=== PATIENT | female | born 1955 | race Caucasian/White ===

== ENCOUNTER 2019-09-19 12:31 | Outpatient (CLI) | payer OTHER, SELFPAY ==
--- NOTE | ~2019-09-19 | XR_ITS ---
EXAMINATION: XR sacrum coccyx min 2V INDICATION: Pain after fall TECHNIQUE: Three views of the sacrum and coccyx are obtained. COMPARISON: None available FINDINGS: No definite fracture is identified. There is mild lumbar spondylosis. The soft tissues appe ar normal. IMPRESSION: 1. No definite fracture identified. If there is high clinical concern for fracture, consider CT or MR I. Reviewed, dictated and finalized at location A. ENTICESHIP CONSULTANT IMPRESSION: 1. No definite fracture identified. If there is high clinical concern for fract ure, consider CT or MRI.
== END 2019-09-19 12:32 | disposition home or self-care (01) ==
LOC: ANHIMG 12:33
DX: S39.92XA Unspecified injury of lower back, initial encounter (principal)
CPT/HCPCS: 72220

== ENCOUNTER 2019-11-19 12:08 | Emergency (ER) | payer OTHER, SELFPAY ==
--- NOTE | ~2019-11-19 | XR_ITS ---
XR finger 1st RT min 2V 11/19/2019 12:45 Indication: Right first finger pain Procedure: 3 views right first finger Comparison: No prior studies for comparison. Findings: There is osteoarthritis of the first finger at the MCP and IP joints. Osteopenia. No acute fracture or traumatic malalignment. Carpal bones grossly unremarkable. 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 Reviewed, dictated and finalized at location A. 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
[2019-11-19 12:34] VITALS: BP 154/73; PULSE 86; RESP 16; TEMP 36.8; O2SAT 99
--- NOTE | 2019-11-19 12:47 | ED.UPPEXIN ---
HPI - Extremity Injury (Upper) General Chief Complaint: Extremity Injury, Upper Stated Complaint: right thumb injury History of Present Illness HPI narrative: This is a 64 year old female that comes in complaining of jamming her right thumb last week and she has had severe pain that is going all the way up her arm. Patient has continued to worry about her arm although she denies taking anything for her symptoms. Patient today she was wrestling with the dog and the chain and the wired poked all the way through her hand and she is thinking that she will need a td shot. Related Data Home Medications Medication Instructions Recorded Confirmed albuterol sulfate INHALATION 11/19/19 amlodipine 11/19/19 apremilast [Otezla] mg PO 11/19/19 atorvastatin 11/19/19 dextroamphetamine-amphetamine PO 11/19/19 divalproex PO 11/19/19 famotidine 11/19/19 famotidine 11/19/19 flu vac [id number] 36mos up(PF) IM 11/19/19 [Afluria Qd (3yr up)(PF)] fluconazole 11/19/19 glyburide mg 11/19/19 hydrochlorothiazide 11/19/19 insulin glargine [Basaglar KwikPen unit SUBCUT 11/19/19 U-100 Insulin] insulin lispro [Admelog SoloStar unit SUBCUT 11/19/19 U-100 Insulin] levothyroxine 11/19/19 losartan 11/19/19 metoprolol tartrate 11/19/19 nystatin TOPICAL 11/19/19 ondansetron 11/19/19 oxcarbazepine 11/19/19 triamcinolone acetonide TOPICAL 11/19/19 venlafaxine mg PO 11/19/19 Allergies Allergy/AdvReac Type Severity Reaction Status Date / Time acetaminophen [From Vicodin] Allergy Anaphylaxis Verified 11/19/19 12:50 hydrocodone [From Vicodin] Allergy Anaphylaxis Verified 11/19/19 12:50 latex Allergy Rash Verified 11/19/19 12:50 levofloxacin [From Levaquin] Allergy Muscle Verified 11/19/19 12:50 Spasms meloxicam Allergy Headache Verified 11/19/19 12:50 tramadol Allergy Itching Verified 11/19/19 12:50 amoxicillin AdvReac Itching Verified 11/19/19 12:50 cephalexin AdvReac Shakiness Verified 11/19/19 12:50 diclofenac AdvReac Nausea Verified 11/19/19 12:50 hydromorphone [From Dilaudid] AdvReac Unknown Verified 11/19/19 12:50 ipratropium [From Atrovent] AdvReac Diarrhea Verified 11/19/19 12:50 metoclopramide [From Reglan] AdvReac Unknown Verified 11/19/19 12:50 Review of Systems Review of Systems: Narrative: CONSTITUTIONAL: Denies fever, chills, or sweats. EYES: Denies visual changes, redness, or discharge. ENT: Denies rhinorrhea, congestion, sore throat, or otalgia. CARDIOVASCULAR:Denies chest pain, palpitations, or edema. RESPIRATORY: Denies cough or dyspnea. GASTROINTESTINAL: Denies abdominal pain, nausea, vomiting, or diarrhea. GENITOURINARY: Denies dysuria or hematuria. SKIN:[Denies rash or itching. c/o thumb and arm pain MUSCULOSKELETAL:Denies back pain, joint pain, or myalgia. right thumb pain NEUROLOGIC: Denies headache, numbness, or weakness. PSYCHIATRIC:Denies anxiety or depression PMFSH Comments At time as signature, I have reviewed and agree with nursing past medical, social, surgical and family history. Please see nursing chart for further information. There is no relevant family history pertinent to the presenting complaint. Exam Narrative: Exam Narrative: GENERAL:Well-appearing, well-nourished, and in no acute distress. HEAD:Normocephalic, atraumatic. EYES: PERRLA and EOMI. ENT: Nares clear, no rhinorrhea or epistaxis. Mucous membranes moist. NECK: Supple. CHEST: Clear to auscultation. No respiratory distress. HEART: Regular rate and rhythm. No murmur heard. Normal peripheral pulses. ABDOMEN: Soft, nontender, nondistended, normal active bowel sounds. EXTREMITIES: Normal range of motion. No edema. SKIN: Warm, dry, no rash. NEURO: No focal deficits. Alert and oriented x3. Essentially negative I see no swelling erythema or any decreased range of motion in hand or with some I see no poke nash of a wire going to patient's hand no signs or symptoms of any injuries Course Vital
== END 2019-11-19 13:31 | disposition home or self-care (01) ==
PROVIDERS: Emergency Provider Nurse Practitioner Family
DX: S63.601A Unspecified sprain of right thumb, initial encounter (principal); E78.00 Pure hypercholesterolemia, unspecified; E11.9 Type 2 diabetes mellitus without complications; I10 Essential (primary) hypertension; F31.9 Bipolar disorder, unspecified; Z79.4 Long term (current) use of insulin; W22.8XXA Striking against or struck by other objects, initial encounter
CPT/HCPCS: 73140; 99213; G0463